=== PATIENT | female | born 1955 | race Caucasian/White ===

== ENCOUNTER 2020-09-05 08:36 | Day surgery (SDC) | payer OTHER, SELFPAY ==
--- NOTE | 2020-09-04 12:03 | HO.ANESPROP2 ---
Documented by User: Vanessa Ribeiro 09/04/20 12:04 HPI - Anesthesia Eval Consult details Narrative: 64yo F for Colonoscopy [facility] Past Medical History Medical History Breast cyst Colon polyps Elevated glucose Hyperlipidemia Hypertension PPD positive Social History Social History Advance Directives: No Advance Directives Information Provided: Yes Advance Directives on File: No Recently lost weight without trying: No Meds Allergies Allergy/AdvReac Type Severity Reaction Status Date / Time acetaminophen [From Percocet] Allergy Takes Verified 09/05/20 09:58 Tylenol with no problems oxycodone [From Percocet] Allergy Unknown Verified 09/04/20 10:53 Home Medications Medication Instructions Recorded Confirmed Type atorvastatin 1 tab PO DAILY 09/04/20 09/04/20 History lisinopril 1 tab PO BEDTIME 09/04/20 09/04/20 History Exam Exam Date and Time: September 04, 2020 1203 Assessment and Plan Assessment Anesthesia Assessment: Chart Reviewed Documented by User: Brooke Arguello 09/05/20 09:59 [facility] Past Medical History Medical History Breast cyst Colon polyps Elevated glucose Hyperlipidemia Hypertension PPD positive Family History Family history of problems with anesthesia: No Surgical History History of Problems with Anesthesia: No Social History Social History Advance Directives: No Advance Directives Information Provided: Yes Advance Directives on File: No Recently lost weight without trying: No Meds Allergies Allergy/AdvReac Type Severity Reaction Status Date / Time acetaminophen [From Percocet] Allergy Takes Verified 09/05/20 09:58 Tylenol with no problems oxycodone [From Percocet] Allergy Unknown Verified 09/04/20 10:53 Home Medications Medication Instructions Recorded Confirmed Type atorvastatin 1 tab PO DAILY 09/04/20 09/04/20 History lisinopril 1 tab PO BEDTIME 09/04/20 09/04/20 History Exam Height,Weight and Vital Signs: Vital Signs Temp Pulse Resp BP Pulse Ox 09/05/20 09:16 98.2 F 106 H 16 142/81 H 97 Airway Mallampati Class: II TM Dist: >3cm Neck ROM: Full Loose/Missing/Broken Teeth: Yes (Bridge bottom left) Heart: RRR Lungs: CTAB Assessment and Plan Assessment Anesthesia Assessment: Anesthesia Plan Discussed and Chart Reviewed Final Anesthetic Review NPO: Yes ASA Class: II Final Preanesthetic Review: No Changes in Pt Med Stat, Meds/Allgs Chart Reviewed, Consent Obtained/Reviewed and Anes Risks/Benef Reviewed Patient Risk: Low Procedure Risk: Low Assessment/Block/Sedation in SS: Assess/Block/Sedation-SS Anesthetic Plan Anesthetic Plan: MAC: Disposition: Standard PACU
--- NOTE | 2020-09-05 | CT_ITS ---
EXAMINATION: CT COLONOGRAPHY CLINICAL INFORMATION: Incomplete colonoscopy COMPARISON: None TECHNIQUE: Bowel preparation: There is a large amount of retained fluid in areas this occupies the entire lumen. There is significant retained fecal residue.. Stool tagging with Gastrografin and barium: Stool tagging was not used. Colonic distention: CO2 mechanical insufflator used via enema tube with adequate distention. Acquisition: Low dose imaging targeted to colonic was performed in the supine and prone positions. Procedure: No immediate complications reported. Review: The acquired images were reviewed in axial, coronal and sagittal planes. Additional 3-D fly through images were reviewed at an independent workstation. This CT examination was performed using dose optimization techniques as appropriate, variously including the following: *Automated exposure control *Adjustment of mA and/or kV according to patient size (this includes techniques or standardized protocols for targeted exams where dose is matched to indication/reason for exam; i.e. extremities or head) *Use of iterative reconstruction technique DLP: 615 mGy-cm FINDINGS: Colonic findings: There is a moderately long segment of luminal narrowing, wall thickening and surrounding stranding in the sigmoid colon. There are some diverticula in this segment. No evidence of a drainable abscess. No evidence of pneumoperitoneum. There is no gas within the uterus or urinary bladder. Numerous adjacent small bowel loops. No specific evidence of fistula. Scattered diverticula in the remaining colon. There is no large colonic mass more proximally. However, there is a large amount of retained fluid which could obscure a significant abnormality. Non-colonic findings: The liver is heterogeneous. This could be related to fatty change but is nonspecific. CT/CT colonography IMPRESSION: Limited study. There is a large amount of retained material including fluid. Moderately long segment of irregular luminal narrowing with wall thickening and surrounding stranding in the region of the sigmoid. This likely represents diverticulitis. No large abscess or pneumoperitoneum. No convincing proximal or mid colonic neoplasm. Heterogeneous liver.
[2020-09-05 09:06] VITALS: BMI 30.5
[2020-09-05 09:16] VITALS: BP 142/81; PULSE 106; RESP 16; TEMP 36.8; O2SAT 97
--- NOTE | 2020-09-05 09:29 | P.HPSUR_ITS ---
Pre-Procedural Eval Section B Chief Complaint: Screening Details of Present Illness: see H & P no changes Relevant Family History (Specify if Yes): No Relevant Social History: None Present Medications: None Medical History: No relevant PMH Allergies: Allergies Allergy/AdvReac Type Severity Reaction Status Date / Time acetaminophen [From Percocet] Allergy Unknown Verified 09/04/20 10:53 oxycodone [From Percocet] Allergy Unknown Verified 09/04/20 10:53 Review of Systems Sugical H&P ROS: Negative: Constitution, Cardiovascular, Respiratory, Neurological, Psychiatric, Hem-Onc, Allergic/Immunologic, Gastrointestinal, Genitourinary, Musculoskeletal, Integumentary, Endocrine and E yes/Ears/Nose/Throat Exam Surgical H&P Exam: Normal: HEENT, Normal: Heart, Normal: Lungs, Normal: Extremities, Normal: Abdomen, Normal: Skin and Normal: Neurological Plan Diagnosis/Plan: Unchanged Patient has been examined and remains a candidate for the planned procedure
[2020-09-05] MEDS: Lactated Ringers 1,000 ML 100 ML IVCONT (09:32)
--- NOTE | 2020-09-05 10:01 | P.HPSUR_ITS ---
Pre-Procedural Eval Section B Chief Complaint: Screening Details of Present Illness: screening Relevant Family History (Specify if Yes): No Relevant Social History: None Present Medications: see Short Stay Collaborative assessment Medical History: No relevant PMH History of Previous Operations: No relevant previous surgery Allergies: Allergies Allergy/AdvReac Type Severity Reaction Status Date / Time acetaminophen [From Percocet] Allergy Takes Verified 09/05/20 09:58 Tylenol with no problems oxycodone [From Percocet] Allergy Unknown Verified 09/04/20 10:53 Review of Systems Sugical H&P ROS: Negative: Constitution, Cardiovascular, Respiratory, Neurological, Psychiatric, Hem-Onc, Allergic/Immunologic, Gastrointestinal, Genitourinary, Musculoskeletal, Integumentary, Endocrine and Eyes/Ears/Nose/Throat Exam Surgical H&P Exam: Normal: HEENT, Normal: Heart, Normal: Lungs, Normal: Extremi ties, Normal: Abdomen, Normal: Skin and Normal: Neurological Plan Diagnosis/Plan: Unchanged Patient has been examined and remains a candidate for the planned procedure
[2020-09-05 10:42] VITALS: BP 113/64; PULSE 91; RESP 14; TEMP 36.7; O2SAT 100
--- NOTE | 2020-09-05 10:47 | PM.OP ---
Brief Operative Note Date of Service: 09/05/20 Pre-op diagnosis: screening Post-op diagnosis: same (incomplete colonoscopy) Procedure: flex sig to 25 cm Surgeon: Pineda Cunningham Anesthesia: MAC Estimated blood loss (mL): 0 Pathology: none sent Condition: stable Disposition: PACU
[2020-09-05 10:57] VITALS: BP 122/73; PULSE 86; RESP 18; O2SAT 97
--- NOTE | 2020-09-05 11:09 | OP_ITS ---
SURGEON: Pineda Cunningham MD INDICATIONS: Colon cancer screening. PREOPERATIVE DIAGNOSIS: POSTOPERATIVE DIAGNOSIS: PROCEDURE PERFORMED: Colonoscopy to 25 cm. ESTIMATED BLOOD LOSS: COMPLICATIONS: ANESTHESIA: ASSISTANTS: SPECIMENS: MEDICATIONS: Monitored anesthesia care. DESCRIPTION OF PROCEDURE: History and physical performed. The risks and benefits of the procedure were explained to the patient. Informed consent was obtained. The patient was placed in the left lateral decubitus position. A digital rectal exam was performed and was found to be normal. The Olympus pediatric video colonoscope was introduced into the rectum and advanced to 25 cm. Examination was performed. The scope was removed. She tolerated the procedure well and was taken to recovery area in stable condition. FINDINGS: Between 20 and 25 cm, was an acute angulation of the colon with luminal narrowing without any obvious mass being identified. The scope could not traverse this area. The mucosa leading into this area appeared normal and there was no evidence of a definite mass lesion. The remainder of the colonic mucosa appeared normal. Retroflexed examination showed internal hemorrhoids. IMPRESSION: Limited examination to 25 cm as above. RECOMMENDATION: CT colonography to evaluate the remainder of the colon. MD CORDELIA Hatch/AGNES / [id number]
[2020-09-05 11:20] VITALS: BP 140/82; PULSE 88; RESP 18; O2SAT 97
[2020-09-05 11:59] VITALS: BP 147/74; PULSE 89; RESP 20; O2SAT 98
[2020-09-05 12:17] VITALS: BP 144/81; PULSE 88; RESP 20; O2SAT 98
--- NOTE | 2020-09-05 12:48 | HO.POSTANES ---
Post Anesthesia Evaluation Post Anesthesia Evaluation Vital Signs: Vital Signs Temp Pulse Resp BP Pulse Ox 09/05/20 12:17 98.0 F 88 20 144/81 H 98 09/05/20 11:59 89 20 147/74 H 98 09/05/20 11:20 88 18 140/82 H 97 09/05/20 10:57 86 18 122/73 97 09/05/20 10:42 98.0 F 91 14 113/64 100 09/05/20 09:16 98.2 F 106 H 16 142/81 H 97 Anesthesia: General (tiva) Mental Status: Awake Pain Control: Satisfactory Nausea/Vomiting: None Hydration: Adequate Anesthesia-Related Issues: No Anes. Related Issues
== END 2020-09-05 12:45 | disposition home or self-care (01) ==
PROVIDERS: PCP Internal Medicine Geriatric Medicine; Visit Provider Internal Medicine Gastroenterology
PROC: 0DJD8ZZ Inspection of Lower Intestinal Tract, Via Natural or Artificial Opening Endoscopic (ICD-10-PCS; CPT 45378; principal; 2020-09-05 10:10)
DX: Z12.11 Encounter for screening for malignant neoplasm of colon (principal); K64.8 Other hemorrhoids; Z86.010 Personal history of colon polyps; Z88.6 Allergy status to analgesic agent
CPT/HCPCS: 45330; 74261

== ENCOUNTER 2020-09-21 11:45 | Outpatient (REF) | payer OTHER, SELFPAY ==
--- NOTE | 2020-09-21 11:50 | CT_ITS ---
EXAMINATION: CT ABDOMEN AND PELVIS WITH CONTRAST CLINICAL INFORMATION: Diverticulitis COMPARISON: CT 09/05/2020 TECHNIQUE: Multidetector volumetric images were obtained from the superior aspect of the liver through the pubic symphysis following administration 85 mL of Omnipaque 350 intravenous contrast. Sagittal and coronal reformatted images were obtained on the technologist's workstation. Oral contrast: No This CT examination was performed using dose optimization techniques as appropriate, variously including the following: *Automated exposure control *Adjustment of mA and/or kV according to patient size (this includes techniques or standardized protocols for targeted exams where dose is matched to indication/reason for exam; i.e. extremities or head) *Use of iterative reconstruction technique DLP: 536 mGy-cm FINDINGS: LUNG BASES: The visualized lung bases are unremarkable. LIVER, GALLBLADDER, AND BILIARY TREE: Liver is diffusely hypoattenuating consistent with diffuse hepatic steatosis. There is more focal fatty infiltration adjacent the fissure of the falciform ligament. No suspicious focal liver lesion seen. Hepatic and portal veins enhance normally. The gallbladder is unremarkable with no evidence of radiopaque gallstones, gallbladder wall thickening, or obvious pericholecystic inflammatory changes. PANCREAS: Unremarkable. SPLEEN: Unremarkable. ADRENAL GLANDS: There is thickening of both adrenal glands, up to 7 mm on the right and 8mm on the left. No discrete adrenal nodule seen however. KIDNEYS AND URETERS: The right kidney appears slightly malrotated. Symmetric bilateral renal enhancement. No hydronephrosis, calculi, or mass. BLADDER: Unremarkable. GASTROINTESTINAL TRACT: The stomach and small bowel are nondilated. Appendix not seen but there are no right lower quadrant inflammatory changes to suggest appendicitis. Again seen is diffuse abnormality of the sigmoid colon with abnormal wall thickening and pericolonic fluid and fat stranding. This involves approximately 15 cm of the sigmoid colon. No abscess or perforation seen. Although the findings are more conspicuous on the current study performed with IV contrast, there are not convincingly changed from the prior study 09/05/2020. ABDOMINAL WALL: There is fat in the right inguinal canal. LYMPH NODES: Normal. VASCULAR: Normal caliber abdominal aorta. PELVIC VISCERA: Unremarkable. OSSEOUS STRUCTURES: No acute osseous abnormality. CT/CT abdomen pelvis w con IMPRESSION: Persistent abnormal wall thickening and pericolonic inflammatory changes of the sigmoid colon consistent with severe acute diverticulitis. No evidence of abscess or perforation. Allowing for differences between the current study with contrast and the prior study performed without contrast, the extent and degree are similar to the prior study.
[2020-09-21] MEDS: iohexoL 350 MG/ML 100 ML INFUS..BTL IV (14:27)
== END 2020-09-21 11:46 | disposition home or self-care (01) ==
LOC: HO.CT 11:45
PROVIDERS: PCP Internal Medicine Geriatric Medicine; Visit Provider Internal Medicine Gastroenterology
DX: K57.32 Diverticulitis of large intestine without perforation or abscess without bleeding (principal)
CPT/HCPCS: 74177; Q9967